=== PATIENT | male | born 1980 | race Caucasian/White ===

== ENCOUNTER → 2021-08-01 | Outpatient (CLI) | payer OTHER | END | disposition home or self-care (01) | LOC: LABPAT 14:41 | PROVIDERS: ATTEND Surgery | DX: Z01.818 Encounter for other preprocedural examination (principal) | CPT/HCPCS: 93005 ==

== ENCOUNTER 2021-08-05 09:27 | Day surgery (SDC) | payer MEDICAID, OTHER ==
[2021-07-31 16:14] VITALS: BMI 45.3
--- NOTE | 2021-08-05 07:55 | P.GSHP ---
History of Present Illness H&P Date: 08/05/21 Chief Complaint: Incarcerated umbilical hernia 41-year-old male here today for repair umbilical hernia. Patient has had the hernia for the last 3 years or so. Mild pain at times. No nausea or vomiting. No change in bowel habits. Patient has had a few episodes of pain resolved after reducing the hernia manually. Past Medical History Past Medical History: Diabetes Mellitus, GERD/Reflux, Hypertension, Thyroid Disorder Additional Past Medical History / Comment(s): Chronic back pain. History of Any Multi-Drug Resistant Organisms: None Reported Past Surgical History: Back Surgery Additional Past Surgical History / Comment(s): Vasectomy, left inner ear reconstruction. Past Anesthesia/Blood Transfusion Reactions: No Reported Reaction Past Psychological History: No Psychological Hx Reported Smoking Status: Never smoker Past Alcohol Use History: Occasional Past Drug Use History: None Reported - Past Family History Father Family Medical History: Cancer Additional Family Medical History / Comment(s): Prostate cancer. Mother Family Medical History: Cancer Additional Family Medical History / Comment(s): Breast cancer. Medications and Allergies Home Medications Medication Instructions Recorded Confirmed Type Ascorbic Acid [Vitamin C] 250 mg PO DAILY 07/31/21 07/31/21 History HYDROcodone/APAP 7.5-325MG [[place] 1 tab PO BID PRN 07/31/21 07/31/21 History 7.5-325] Levothyroxine Sodium [Synthroid] 50 mcg PO QAM 07/31/21 07/31/21 History Omeprazole 40 mg PO DAILY PRN 07/31/21 07/31/21 History amLODIPine [Norvasc] 10 mg PO QAM 07/31/21 07/31/21 History metFORMIN HCL 1,000 mg PO BID 07/31/21 07/31/21 History Allergies Allergy/AdvReac Type Severity Reaction Status Date / Time No Known Allergies Allergy Verified 07/31/21 15:59 Surgical - Exam Physical exam: General: Well-developed, well-nourished HEENT: Normocephalic, sclerae nonicteric Abdomen: Nontender, nondistended, moderate sized incarcerated umbilical hernia Extremities: No edema Neuro: Alert and oriented
[~2021-08-05 09:27] MED LIST: ACETAMINOPHEN TAB 500 MG TAB PO PRN; DEXAMETHASONE SOD PHOSPHATE 4 MG/ML 1 ML VIAL IV ONE; HEPARIN SODIUM,PORCINE/PF 5,000 UNIT/0.5 ML SYRINGE SQ PRN; HYDROmorphone 0.5 MG/0.5 ML SYRINGE IVP PRN; LACTATED RINGERS 1,000 ML IV SCH; LIDOCAINE 1% (10MG/ML) FOR IV START INTRADERMA PRN; MIDAZOLAM 2 MG/2 ML VIAL IV PRN; ONDANSETRON 4 MG/2 ML VIAL IVP ONE; ceFAZolin 3 GM in SODIUM CHLORIDE 0.9% 100 ML IVPB PRN
[2021-08-05 10:17] LABS: Glucose,Whole Blood 100 mg/dL (75-99)
[2021-08-05] MEDS ORDERED: ROCURONIUM 10 MG/ML (5 ML VIAL) IV ONE (12:59)
[2021-08-05] MEDS ORDERED: NEOSTIGMINE 1 MG/ML 10 ML VIAL ONE (12:59)
[2021-08-05] MEDS ORDERED: GLYCOPYRROLATE 0.2 MG/ML 2 ML VIAL ONE (12:59)
[2021-08-05] MEDS ORDERED: LIDOCAINE 1% INJ 10MG/ML (20 ML MDV) ONE (12:59)
[2021-08-05] MEDS ORDERED: MIDAZOLAM 2 MG/2 ML VIAL ONE (12:59)
[2021-08-05] MEDS ORDERED: .fentaNYL (PF) 50 MCG/ML 2 ML AMP ONE (12:59)
[2021-08-05] MEDS ORDERED: SUCCINYLCHOLINE CHLORIDE 100 MG/5 ML SYR IV ONE (12:59)
[2021-08-05] MEDS ORDERED: PROPOFOL 10 MG/ML 20 ML VIAL IV ONE (12:59)
[2021-08-05] MEDS ORDERED: BUPIVACAINE (PF) 0.25% 30 ML VIAL SQ ONE ×3 (13:27→14:25)
--- NOTE | 2021-08-05 14:37 | P.OP ---
Date of Procedure: 08/05/21 Procedure(s) Performed: PREOPERATIVE DIAGNOSIS: Incarcerated umbilical hernia POSTOPERATIVE DIAGNOSIS: Same PROCEDURE: Umbilical herniorrhaphy with mesh, partial omentectomy SURGEON: Theodore EBL: 50 mL ANESTHESIA: General COMPLICATIONS: None OPERATIVE PROCEDURE: The patient was placed in the operating table in the supine position. A supraumbilical incision was made using the scalpel. The subcutaneous tissues were dissected bluntly and with cautery. The hernia sac was identified. The umbilical attachments to the fascia were divided using electrocautery. The patient had a large hernia sac. This was opened. Patient had omentum present within the hernia that was incarcerated. A good portion of the omentum was excised. 3-0 silk ties were used to ligate the omentum. Omentum was sent to pathology. The hernia sac was then ligated close to the peritoneal surface with a 0 Ethibond stick tie suture. The hernia sac was excised. The defect in the fascia measured 2.5 x 1 cm. The fat overlying the fascia was dissected. No additional defects were seen. The preperitoneal space was then dissected using blunt dissection and electrocautery. The 6.4 cm ventral ex mesh was placed beneath the fascia and sutured in place using trans- fascial 0 Ethibond sutures. The mesh was present in the sub-lay position. The defect was closed using interrupted 0 Ethibond mattress sutures. The subcutaneous tissues were reapproximated using inverted 2-0 & 3-0 Vicryl sutures. The umbilicus was tacked back down to the fascia using a 2-0 Vicryl suture. The skin was closed using 4-0 Monocryl sutures. Skin glue and sterile dressings were then applied. DISPOSITION: Stable to recovery room
[2021-08-05 14:53] VITALS: TEMP 96.9
[2021-08-05 14:59] LABS: Glucose,Whole Blood 137 mg/dL (75-99)
[2021-08-05] MEDS ORDERED: ACETAMINOPHEN TAB 325 MG TAB PO SCH (15:00)
[2021-08-05 15:14] VITALS: RESP 16
[2021-08-05] MEDS ORDERED: SODIUM CHLORIDE 0.9% 1,000 ML IV ONE ×2 (15:18)
[2021-08-05] MEDS ORDERED: oxyCODONE-APAP 5-325MG 1 EACH TAB PO ONE (15:57)
[2021-08-05 16:26] VITALS: BP 129/77; PULSE 84
[2021-08-05] MEDS ORDERED: IBUPROFEN 600 MG TAB PO SCH (18:00)
== END 2021-08-05 16:39 | disposition home or self-care (01) ==
LOC: OR 09:27
PROVIDERS: ATTEND Surgery
DX: K42.0 Umbilical hernia with obstruction, without gangrene (principal); I10 Essential (primary) hypertension; E03.9 Hypothyroidism, unspecified; K21.9 Gastro-esophageal reflux disease without esophagitis; G89.29 Other chronic pain; M54.9 Dorsalgia, unspecified; E11.9 Type 2 diabetes mellitus without complications; Z98.52 Vasectomy status; Z98.890 Other specified postprocedural states; Z82.49 Family history of ischemic heart disease and other diseases of the circulatory system; Z82.5 Family history of asthma and other chronic lower respiratory diseases; Z80.42 Family history of malignant neoplasm of prostate; Z80.3 Family history of malignant neoplasm of breast; Z79.84 Long term (current) use of oral hypoglycemic drugs; Z79.890 Hormone replacement therapy; Z79.899 Other long term (current) drug therapy
CPT/HCPCS: 49587; C1781; J2250; J1100; J2710; J0690; J2405; J2001; J3010; J0330; J2704; J1170; J1644; 88305

== ENCOUNTER → 2024-03-09 | Outpatient (CLI) | payer BC ==
--- NOTE | 2024-03-09 13:16 | CA ---
Exercise Stress Test Report Name: Tyrell Martin Exam Date: 03/09/2024 10:56 Exam Location: [place] Stress Ht (in): 72 Wt (lb): 315 BSA: 2.58 Ordering Phys: Sanjana Oneil DO Referring Phys: Lorena Wayne PAC Technologist: Marissa Block RDCS Age: 43 Gender: M : 1980 Procedure CPT: Indications: R07.9 CHEST PAIN, UNSPECIFIED ICD-10 Codes: Patient History: Medications: MOUNJARO, OMEPERAZOLE, METFORMIN, LISINOPRIL, ROSUVASTATIN, AMLODIPINE, LEVOTHYROXINE, HYDROCODONE Meds past 24 hrs: Pretest Chest Pain: STRESS TEST Roberto Protocol Exercise Duration (min:sec): 10:[address] Depressions (mm): Angina Score: Huerta Score: Resting HR (bpm): 89 Peak HR (bpm): 153 Resting BP (mmHg): 121 / 85 Peak BP (mmHg): 196 / 75 MPHR: 176 Target HR: 150 % MPHR: 87 METS: 12.1 Total Dose: Peak Dose: Atropine: Double Product: 83065 BP Response: Stress Termination: Reached target heart rate Stress Symptoms: NO SYMPTOMS Stress Summary: ECG ANALYSIS Resting ECG: Stress ECG: CONCLUSIONS Patient underwent exercise stress EKG with a Roberto protocol treadmill stress test. Patient exercised into Stage 4 for a total of 10 minutes and 8 seconds reaching a total of 12.1 METS. Patient's maximum heart rate was 153 which represented 86% age- predicted maximum heart rate. Stress EKG findings: At baseline patient's EKG showed normal sinus rhythm, normal axis, no significant ST or T wave abnormalities. At peak exercise, EKG showed no significant change from baseline. Conclusions: 1. Normal EKG response to exercise without evidence of inducible ischemia. 2. Excellent exercise capacity. Dr. Willi Faria DO (Electronically Signed) Final Date: 09 March 2024 13:15
--- NOTE | 2024-03-10 09:57 | CA ---
Transthoracic Echo Report Name: Tyrell Martin Age: 43 Gender: M : 1980 Exam Date: 03/09/2024 11:13 Exam Location: [place] Echo Ht (in): 72 Wt (lb): 315 Ordering Physician: Sanjana Oneil DO Attending/Referring Phys: Lorena Wayne PAC Sales Enablement Manager Cherelle Woodall RDCS Procedure CPT: Indications: R07.9 CHEST PAIN, UNSPECIFIED Cardiac Hx: Technical Quality: Fair Contrast 1: Total Dose (mL): Contrast 2: Total Dose (mL): MEASUREMENTS (Male / Female) Normal Values 2D ECHO LV Diastolic Diameter PLAX 3.6 cm 4.2 - 5.9 / 3.9 - 5.3 cm LV Systolic Diameter PLAX 1.6 cm IVS Diastolic Thickness 1.7 cm 0.6 - 1.0 / 0.6 - 0.9 cm LVPW Diastolic Thickness 1.6 cm 0.6 - 1.0 / 0.6 - 0.9 cm LV Relative Wall Thickness 0.9 LA Volume 53.3 cm??? 18 - 58 / 22 - 52 cm??? LA Volume Index 19.3 cm???/m??? 16 - 28 cm???/m??? M-MODE Aortic Root Diameter MM 3.7 cm LA Systolic Diameter MM 4.0 cm LA Ao Ratio MM 1.1 AV Cusp Separation MM 2.2 cm DOPPLER AV Peak Velocity 153.7 cm/s AV Peak Gradient 9.5 mmHg AV Mean Velocity 111.6 cm/s AV Mean Gradient 5.4 mmHg AV Velocity Time Integral 30.2 cm LVOT Peak Velocity 114.0 cm/s LVOT Peak Gradient 5.2 mmHg LVOT Velocity Time Integral 22.9 cm MV Area PHT 3.3 cm??? Mitral E Point Velocity 67.6 cm/s Mitral A Point Velocity 81.3 cm/s Mitral E to A Ratio 0.8 MV Deceleration Time 230.7 ms MV E' Velocity 8.9 cm/s Mitral E to MV E' Ratio 7.6 TR Peak Velocity 165.5 cm/s TR Peak Gradient 11.0 mmHg Right Ventricular Systolic Press 16.0 mmHg FINDINGS Left Ventricle Left ventricular cavity size normal. Moderately increased left ventricular wall thickness. Normal left ventricular systolic function with no obvious regional wall motion abnormalities. Grade 1 diastolic dysfunction. Left ventricular ejection fraction is estimated at 55-60 %. Right Ventricle Mild right ventricular dilatation. Right ventricular systolic pressure within normal limits. Right Atrium Normal right atrial size. Left Atrium Normal left atrial size. Mitral Valve Structurally normal mitral valve. Trace mitral regurgitation. No mitral stenosis. No evidence for mitral valve prolapse. Aortic Valve Trileaflet aortic valve. No aortic valve stenosis or regurgitation. Tricuspid Valve Structurally normal tricuspid valve. Trace to mild tricuspid regurgitation. Pulmonic Valve Structurally normal pulmonic valve. Pericardium No pericardial effusion. Aorta Normal size aortic root and proximal ascending aorta. CONCLUSIONS Left ventricular ejection fraction 55-60% Moderately increased left ventricular wall thickness RVSP 16 Trace mitral regurgitation and Trace to mild tricuspid regurgitation Previewed by: Dr. Willi Faria DO (Electronically Signed) Final Date: 10 March 2024 09:57
== END | disposition home or self-care (01) ==
LOC: RADNMMAIN 10:27
PROVIDERS: ATTEND Family Medicine
DX: R07.9 Chest pain, unspecified (principal); R06.09 Other forms of dyspnea
CPT/HCPCS: 93017; 93306

== ENCOUNTER 2025-01-09 09:42 | Day surgery (SDC) | payer BC ==
[~2025-01-09 09:42] MED LIST changes: -ACETAMINOPHEN TAB 500 MG TAB PO PRN; -DEXAMETHASONE SOD PHOSPHATE 4 MG/ML 1 ML VIAL IV ONE; -HEPARIN SODIUM,PORCINE/PF 5,000 UNIT/0.5 ML SYRINGE SQ PRN; -HYDROmorphone 0.5 MG/0.5 ML SYRINGE IVP PRN; -LACTATED RINGERS 1,000 ML IV SCH; -MIDAZOLAM 2 MG/2 ML VIAL IV PRN; -ONDANSETRON 4 MG/2 ML VIAL IVP ONE; -ceFAZolin 3 GM in SODIUM CHLORIDE 0.9% 100 ML IVPB PRN
[2025-01-09] MEDS: LACTATED RINGERS 1,000 ML IV SCH (09:53)
[2025-01-09] MEDS: IV FLUID CONTINUATION 1,000 ML IV ONE (09:54)
[2025-01-09 10:05] LABS: Glucose,Whole Blood 97 mg/dL (70-110)
[2025-01-09] MEDS ORDERED: PROPOFOL 10 MG/ML 20 ML VIAL IV ONE (10:55)
[2025-01-09] MEDS ORDERED: LIDOCAINE HCL/PF 20 MG/ML 10 ML AMP ONE (10:55)
--- NOTE | 2025-01-09 11:16 | P.PCN ---
Date of Procedure: 01/09/25 Preoperative Diagnosis: Screening Postoperative Diagnosis: Internal hemorrhoids Procedure(s) Performed: Colonoscopy Anesthesia: MAC Surgeon: Verónica Cesar Pathology: none sent Condition: stable Disposition: same day Indications for Procedure: 44-year-old male presents today for screening colonoscopy. denies any blood in his stool. No family history of colon cancer. All questions answered prior to attending the endoscopy suite Operative Findings: Internal hemorrhoid Description of Procedure: The patient was brought to the endoscopy suite and placed in left lateral decubitus position and adequate sedation was achieved using conscious sedation. Digital rectal exam was performed and mild internal hemorrhoids were palpated. An endoscope was then placed in the rectum and advanced to the cecum as identified by landmarks including the appendiceal orifice and the ileocecal valve. The prep was good. The colonoscope was then slowly withdrawn, examining for any mucosal abnormalities. The cecum, ascending, transverse, descending and sigmoid colon were visualized adequately. There were no large neoplastic lesions noted throughout the colon. No obvious polyps noted throughout the colon. No evidence of diverticulosis. Hemostasis was maintained. Retroflexion was performed in the rectum and internal hemorrhoids. Excess air was removed, the colonoscope withdrawn and the procedure terminated. The patient was then transferred to the recovery unit in stable condition. Repeat colonoscopy should be performed in 10 years.
[2025-01-09 11:42] VITALS: BP 112/73; PULSE 77; RESP 17
== END 2025-01-09 11:45 | disposition home or self-care (01) ==
LOC: ORWHC2ENDO 09:42
PROVIDERS: ATTEND Surgery
DX: Z12.11 Encounter for screening for malignant neoplasm of colon (principal); K64.8 Other hemorrhoids; I10 Essential (primary) hypertension; E11.9 Type 2 diabetes mellitus without complications; E07.9 Disorder of thyroid, unspecified; K21.9 Gastro-esophageal reflux disease without esophagitis; E66.01 Morbid (severe) obesity due to excess calories; Z79.890 Hormone replacement therapy; Z79.85 Long-term (current) use of injectable non-insulin antidiabetic drugs; Z79.899 Other long term (current) drug therapy
CPT/HCPCS: 45378; J2003; J2704